=== PATIENT | female | born 1930 | race Caucasian/White ===

== ENCOUNTER 2016-10-28 02:00 | Inpatient (IN) | payer OTHER, MEDICARE ==
[2016-10-28] VITALS (8 sets, daily range): BP systolic 119–132; BP diastolic 49–77; PULSE 115–136; RESP 18–23; TEMP 97.5–98.8; O2SAT 92–97
[~2016-10-28] VITALS: Ht 152.4 cm; Wt 51.3 kg
[~2016-10-28 02:00] MED LIST: ACET-2165 PO; ASCO500T20 PO; CARB200T PO; CRAN450C PO; DIVA500T4 PO; FERR-57 PO; MULT240L3 PO; OSCD500 PO; PRO40 PO; SENN-153 PO; WARF6TAB20 PO
--- NOTE | 2016-10-28 02:00 | NUR ---
Patient to ER bed 6 to gown for evaluation. Side rails up
--- NOTE | 2016-10-28 02:00 | NUR ---
Prior to the pt's arrival, Dr. Hudson came to the ER and informed the staff that he would be sending the pt because he was covering for Dr. Lobato. He instructed that he be contacted should the pt require admission.
--- NOTE | 2016-10-28 02:10 | NUR ---
ER Dr. Shaikh at bedside examining patient.
--- NOTE | 2016-10-28 02:20 | NUR ---
Patient BIB by ambulance with a complaint of SOB. Patient alert but non-verbal, does not follow commands. Afebrile. O2 sat 91%. Rhonchi on bilateral lungs. No acute distress noted. Will continue to monitor.
[2016-10-28] MEDS ORDERED: IPRATROPIUM/ALBUTEROL SULFATE 3 ML AMPUL.NEB ONE ×2 (02:48→03:43)
[2016-10-28] MEDS ORDERED: LEVOFLOXACIN 500 MG/D5W 100 ML IV ONE (03:36)
[2016-10-28] MEDS ORDERED: PIPERACILLIN/TAZOBACTAM 3.375 GM/VIAL (ZOSYN) IV ONE (03:37)
--- NOTE | 2016-10-28 03:58 | NUR ---
Dr. Hudson paged for admission per previous instructions.
--- NOTE | 2016-10-28 04:18 | NUR ---
Patient transferred to Telemetry unit room 133A via rsherrard by 2 RNs without incident. No acute distress or SOB noted. Patient hooked up on tele monitor. O2 sat 95-96%. Heart rated elevated at 129 beats/min. Temperature 97.[address] Hudson is the attending MD and obtained orders. Report given to PRANEETH Miller.
--- NOTE | 2016-10-28 04:20 | NUR ---
Admission Note. DOWN TIME Received patient from ER with diagnosis of UTI, PNA. Initial Plan of Care discussed-patient UNABLE TO VERBALIZE understanding.Oriented to room,133A call light, pain management and safety.
--- NOTE | 2016-10-28 05:00 | NUR ---
Admission Assessment Received patient from ED, non-verbal but opens and tracks with eyes, no acute distress noted. IV to left forearm noted to be infiltrated, IV fluids stopped, new IV to be inserted. All extremities noted to be contracted. G-tube noted to abdomen. All fall and safety precautions in place, will continue to monitor closely for change in patient status.
[2016-10-28] MEDS ORDERED: D5/0.45 NS 1,000 ML IV SCH (05:15)
--- NOTE | 2016-10-28 05:15 | NUR ---
MD Called Dr Hudson was called and made aware that patient's SBP in the ED was 80's per ED RN and HR is sustaining in the 130's, no fever noted at this time. Does not want to initiate sepsis protocol at this time. Down time during ED stay, verified with ED RN, blood cultures and first lactic acid were drawn, 1L IV fluids given. New order received for IVF at D51/2NS at 75mL/hr. Noted and to be carried out.
[2016-10-28] MEDS ORDERED: LevALBUTEROL HCL 1.25 MG/0.5 ML *CONC.* VIAL.NEB (XOPENEX CONC.) INH PRN (06:15)
[2016-10-28 06:50] LABS: WHITE BLOOD COUNT (AUTO) 6.8 K/uL (4.8-10.8)
[2016-10-28 06:51] LABS: BASOPHILS % (AUTO) 0.5 % (0.0-2.0); EOSINOPHILS % (AUTO) 0.5 % (0.0-4.0); HEMATOCRIT 33.4 % (36-48); HEMOGLOBIN 11.4 g/dL (12.0-16.0); LYMPHOCYTES # (AUTO) 1.1 K/uL (1.0-5.5); LYMPHOCYTES % (AUTO) 15.7 % (20.5-51.5); MEAN CORPUSCULAR HEMOGLOBIN 34 pg (27-31); MEAN CORPUSCULAR HGB CONC 34 % (32-36); MEAN CORPUSCULAR VOLUME 99 fL (79.0-98.0); MONOCYTES # (AUTO) 0.8 K/uL (0.0-1.0); MONOCYTES % (AUTO) 11.9 % (1.7-9.3); NEUTROPHILS # (AUTO) 4.9 K/uL (1.8-7.7); NEUTROPHILS % (AUTO) 71.4 % (40.0-70.0); PLATELET COUNT (AUTO) 173 K/uL (130-430); RED BLOOD CELL COUNT(AUTO) 3.38 MIL/uL (4.2-6.2); RED CELL DISTRIBUTION WIDTH 12.9 % (9.0-15.0)
[2016-10-28 06:52] LABS: ANION GAP < 3 (5-15); CHLORIDE 98 mmol/L (98-107); POTASSIUM 3.6 mmol/L (3.5-5.1); SODIUM SERUM 137 mmol/L (136-145)
[2016-10-28 06:53] LABS: ALANINE AMINOTRANSFERASE 20 U/L (12-78); ASPARTATE AMINOTRANSFERASE 29 U/L (10-37); CALCIUM 9.6 mg/dL (8.4-11.0); CREATININE 0.53 mg/dL (0.55-1.30); GLUCOSE 105 mg/dL (70-99); TOTAL BILIRUBIN 0.1 mg/dL (0.0-1.0); TOTAL PROTEIN, SERUM 6.5 g/dL (6.4-8.3); UREA NITROGEN, BLOOD 26 mg/dL (8-21)
[2016-10-28 06:54] LABS: ALBUMIN 2.5 g/dL (3.4-4.8)
[2016-10-28 06:55] LABS: PROTHROMBIN TIME 10.4 SECS (9.5-12.5)
--- NOTE | 2016-10-28 06:55 | NUR ---
Closing Notes Patient is resting quietly in bed, no acute distress noted. IV fluids and tube feeding started per MD order and are infusing well. IV noted to be infiltrated, new IV started to right hand #24 gauge, flushes well, IV fluids restarted and infusing well. Patient is stable, all needs met throughout shift. Will continue to monitor until endorsed to AM nurse at bedside.
[2016-10-28 07:05] LABS: BILIRUBIN,URINE NEGATIVE (NEGATIVE); BLOOD, URINE NEGATIVE (NEGATIVE); CLARITY/URINE SLIGHTLY CLOUDY (CLEAR); COLOR,URINE YELLOW (YELLOW); GLUCOSE,URINE NEGATIVE (NEGATIVE); KETONES,URINE TRACE (NEGATIVE); LEUKOCYTE ESTERASE ,URINE 1+ (NEGATIVE); NITRITE, URINE POSITIVE (NEGATIVE); PROTEIN URINE TRACE (NEGATIVE); UROBILINOGEN,URINE 0.2 (0.2-1.0)
[2016-10-28 07:10] LABS: BACTERIA,URINE MANY /HPF (None Seen); MUCUS,URINE None Seen /LPF (None Seen); RBC,URINE 0-3 /HPF (0-3); WBC,URINE 50-80 /HPF (0-3)
[2016-10-28] MEDS: LevALBUTEROL HCL 1.25 MG/0.5 ML *CONC.* VIAL.NEB (XOPENEX CONC.) INH SCH ×3 (07:33→20:06)
--- NOTE | 2016-10-28 08:10 | NUR ---
Routine Patient resting in bed with no respiratory distress noted. Patient stable.
--- NOTE | 2016-10-28 09:43 | NUR ---
Routine Patient resting comfortably in bed with Dr. Hudson at bedside. Patient stable.
[2016-10-28] MEDS ORDERED: ACETAMINOPHEN 325 MG TABLET GT PRN (10:00)
[2016-10-28] MEDS ORDERED: MILK OF MAGNESIA 30 ML UDC PO PRN ×2 (10:00→11:00)
[2016-10-28] MEDS ORDERED: ASCORBIC ACID 500 MG TABLET PO ONE (11:00)
[2016-10-28] MEDS ORDERED: AZITHROMYCIN 500 MG in NS 250 ML IV ONE (11:00)
[2016-10-28] MEDS: GENTAMICIN 120 MG/ ISO-OSM 100 ML PREMIX IV SCH (12:42)
--- NOTE | 2016-10-28 12:45 | NUR ---
Routine Scheduled IV ABX given per order. Patient resting comfortably in bed with no respiratory distress noted. Patient stable.
--- NOTE | 2016-10-28 13:40 | NUR ---
Routine Ordered IV ABX given. Patient resting in bed receiving breathing treatment. Patient stable at this time.
--- NOTE | 2016-10-28 15:45 | NUR ---
Routine Patient resting in bed with eyes closed. No respiratory distress noted at this time. Patient stable.
--- NOTE | 2016-10-28 16:40 | NUR ---
Routine Patient resting in bed with facial grimace. Tylenol given prn for pain. Tube feeding placed on hold due to high residual (150 mls). Will recheck residual in one hour. Patient stable at this time.
--- NOTE | 2016-10-28 17:45 | NUR ---
Routine Patient resting in bed with no facial grimace. Rechecked residual: 175 ml. Tube feeding still on hold. Will contact doctor.
--- NOTE | 2016-10-28 18:35 | NUR ---
Routine Patient resting comfortably in bed with no distress noted. No facial grimace at this time. Patient stable throughout shift.
--- NOTE | 2016-10-28 19:45 | NUR ---
Initial Notes Pt is awake, non verbal and unable to make needs known. Pt noted to have audible rhonchi over anterior bilateral lung bases. G tube residual checked with Day RN Lakisha, with total of 40cc of residual noted. G tube re started at this time with aspiration precautions in place, head of bed elevated to 45 high fowlers degree at all times. No acute distress or sob noted. Pt is on 2L N/C with O2 saturation at 92%. Pt is sinus tachy on tele monitor, 115. Will page MD to notify of possible fluid overload with audible rhonchi. IV to right hand #24g noted infusing with D51/2NS@75ml/hr. G tube running well with Isosource@50ml/hr. Bilateral upper and lower extremities contracted. Unable to discuss plan of care with pt due to cognitive and physical limitations, no family available to discuss poc with at this time. Safety precautions in place with bed in lowest, locked, position, bed alarm on at all times. Aspiration precautions in place, oral suctioning provided at this time. Padded side rails up hx of epilepsy, no s/s of seizure activity noted at this time. All needs met. Call light in reach. Will continue to monitor.
--- NOTE | 2016-10-28 19:54 | NUR ---
Pageálvaro Hudson Pageálvaro Hudson at this time to notify of pt's ronchi heard over anterior bilateral lobes, elevated heart rate of 115. Will await call back.
--- NOTE | 2016-10-28 20:04 | NUR ---
Spoke with MD Hudson Informed MD that pt's lung sounds auscultated and anterior rhonchi heard all over bases. MD ordered to hep lock IV fluids. Also informed that pt's g tube feeding residuals were elevated to 175ml per Day shift PRANEETH Banuelos, but where checked now and they are at 40cc. All new orders noted and carried out. Will continue to monitor.
--- NOTE | 2016-10-28 20:06 | NUR ---
Breathing TX Respiratory therapist administering breathing treatment as ordered.
[2016-10-28] MEDS: ENOXAPARIN SODIUM 30 MG/0.3 ML SYRINGE SUBCUT SCH (21:43)
[2016-10-28] MEDS: PANTOPRAZOLE SODIUM 40 MG TAB PO SCH (21:44)
[2016-10-28] MEDS: SENNOSIDES 8.6 MG TABLET PO SCH (21:44)
[2016-10-28] MEDS: CALCIUM CARBONATE/VITAMIN D3 1 TAB TABLET PO SCH (21:44)
[2016-10-28] MEDS: DIVALPROEX SODIUM 500 MG TAB.SR.24H (DEPAKOTE ER) PO SCH (21:44)
[2016-10-28] MEDS: FERROUS SULFATE 325 MG TABLET.DR PO SCH (21:44)
--- NOTE | 2016-10-28 21:44 | NUR ---
Scheduled medications/Bed bath G tube checked with 10cc of air bolus, with no residual noted at this time. All scheduled medications given via g tube as ordered and g tube flushed well with free water. G tube running well as ordered with Isosource @50cc/hr. IV hep locked. Total bed bath given at this time with skin care. Pt re positioned with pillows for comfort with heels floating. All needs met at this time. Call light in reach. Will continue to monitor.
[2016-10-29 00:02] VITALS: BP 122/73; PULSE 112; RESP 20; TEMP 98.8; O2SAT 96
--- NOTE | 2016-10-29 00:15 | NUR ---
PATIENT RESTING: Patient resting quietly. No acute distress noted. Vital signs within normal range. Call light in hand. Will continue to monitor.
[2016-10-29] MEDS: LevALBUTEROL HCL 1.25 MG/0.5 ML *CONC.* VIAL.NEB (XOPENEX CONC.) INH SCH ×4 (01:27→20:01)
--- NOTE | 2016-10-29 02:30 | NUR ---
Rounds Pt is sleeping at this time with no acute distress or sob noted. All needs met. Call light in reach. Will continue to monitor.
[2016-10-29 03:26] VITALS: BP 119/54; PULSE 108; RESP 20; TEMP 98.6; O2SAT 86
--- NOTE | 2016-10-29 04:45 | NUR ---
Rounds Pt is awake, hygiene care provided. No acute distress noted or sob. All needs met at this time. Call light in hand. Will continue to monitor.
--- NOTE | 2016-10-29 06:04 | NUR ---
Critical Lab - Result reported to MD Hudson Paged and spoke with MD at this time. Informed MD of critical result for positive gram in clusters for both aerobic and anaerobic bottles. New order for Vanco IVPB 1 gm now, and then pharmacy to dose.
[2016-10-29] MEDS: NORMAL SALINE 5 ML DISP.SYRIN IVF SCH ×3 (06:48→21:00)
[2016-10-29 07:00] LABS: BASOPHILS % (AUTO) 0.4 % (0.0-2.0); LYMPHOCYTES # (AUTO) 1.4 K/uL (1.0-5.5); NEUTROPHILS # (AUTO) 3.5 K/uL (1.8-7.7); WHITE BLOOD COUNT (AUTO) 5.9 K/uL (4.8-10.8)
--- NOTE | 2016-10-29 07:10 | NUR ---
Closing Notes Pt is resting comfortably in bed. No acute distress or sob noted. Aspiration and safety precautions maintained. Pt denies any pain or discomfort at this time. VSS. IV intact. Breathing is even unlabored. All needs met throughout shift. Pt in stable condition. All needs met throughout shift. Will endorse care to am nurse. Call light in hand. Will continue to monitor.
[2016-10-29 07:13] LABS: ANION GAP 3 (5-15); CHLORIDE 100 mmol/L (98-107); CREATININE 0.31 mg/dL (0.55-1.30); GLUCOSE 98 mg/dL (70-99); POTASSIUM 4.3 mmol/L (3.5-5.1); SODIUM SERUM 135 mmol/L (136-145); UREA NITROGEN, BLOOD 19 mg/dL (8-21)
[2016-10-29 07:20] LABS: EOSINOPHILS % (AUTO) 0.3 % (0.0-4.0); HEMATOCRIT 30.2 % (36-48); HEMOGLOBIN 10.4 g/dL (12.0-16.0); LYMPHOCYTES % (AUTO) 23.7 % (20.5-51.5); MEAN CORPUSCULAR HEMOGLOBIN 34 pg (27-31); MEAN CORPUSCULAR HGB CONC 34 % (32-36); MEAN CORPUSCULAR VOLUME 99 fL (79.0-98.0); MONOCYTES % (AUTO) 17.7 % (1.7-9.3); NEUTROPHILS % (AUTO) 57.9 % (40.0-70.0); PLATELET COUNT (AUTO) 146 K/uL (130-430); RED BLOOD CELL COUNT(AUTO) 3.05 MIL/uL (4.2-6.2); RED CELL DISTRIBUTION WIDTH 13.3 % (9.0-15.0)
[2016-10-29 07:50] VITALS: BP 108/76; PULSE 101; RESP 16; TEMP 98.6; O2SAT 93
--- NOTE | 2016-10-29 07:50 | NUR ---
INITIAL ROUNDS Received pt awake, eyes open, withdraws to touch, non-verbal. No s/s resp distress-noted pt with non-productive cough-pt suction via mouth with moderate amount of thin, clear sputum. No s/s pain or discomfort. Noted pt's BUE and BLE contracted. Pt on air mattress-will reposition pt Q2hrs/PRN with pillow support and heels off-loaded for skin care. Pt also has pillow between legs due to contraction to protect pt's skin. G-tube feeding infusing well at ordered rate with 2 ml residual noted. Side rails up x3, bed alarm on and room close to nursing station for safety.
[2016-10-29] MEDS ORDERED: VANCOMYCIN HCL 1 GM/NS PREMIX 250 ML IV ONE (08:00)
[2016-10-29] MEDS: CALCIUM CARBONATE/VITAMIN D3 1 TAB TABLET PO SCH ×2 (08:49→21:00)
[2016-10-29] MEDS: DIVALPROEX SODIUM 500 MG TAB.SR.24H (DEPAKOTE ER) PO SCH ×2 (08:49→21:00)
[2016-10-29] MEDS: PANTOPRAZOLE SODIUM 40 MG TAB PO SCH ×2 (08:50→21:00)
[2016-10-29] MEDS: ASCORBIC ACID 500 MG TABLET PO SCH (08:50)
[2016-10-29] MEDS ORDERED: AZITHROMYCIN 500 MG in NS 250 ML IV SCH (09:00)
[2016-10-29] MEDS: FERROUS SULFATE 325 MG TABLET.DR PO SCH ×2 (09:05→21:00)
--- NOTE | 2016-10-29 10:05 | NUR ---
ROUNDS Pt resting quietly in bed with no s/s resp distress, no s/s pain or discomfort. Pt repositioned with assist of CRUSHER TENDER-pt had small BM, pt cleaned up. Pt repositioned with pillow support and heels off-loaded for skin care. All precautions remain in place.
[2016-10-29 12:00] VITALS: BP 109/60; PULSE 122; RESP 20; TEMP 98.8; O2SAT 95
[2016-10-29] MEDS: GENTAMICIN 120 MG/ ISO-OSM 100 ML PREMIX IV SCH (12:00)
--- NOTE | 2016-10-29 12:00 | NUR ---
ROUNDS/IVPB Pt resting quietly in bed with no s/s resp distress, no s/s pain or discomfort. Gentamicin IVPB hung as ordered. Pt repositioned with pillow support and heels off-loaded with pillow between pt's legs.
--- NOTE | 2016-10-29 14:05 | NUR ---
ROUNDS Pt lying in bed with eyes open, noted pt with non-productive cough-pt suctioned via mouth moderate amount of thin, clear sputum. No s/s pain or discomfort. Pt repositioned with pillow support. All precautions remain in place.
[2016-10-29 16:00] VITALS: BP 147/70; PULSE 105; RESP 21; TEMP 98.6; O2SAT 99
--- NOTE | 2016-10-29 16:15 | NUR ---
ROUNDS/BM Pt resting quietly in bed with no s/s resp distress, no s/s pain or discomfort. Pt had large dark BM-noted pt on iron tablets. Pt repositioned.
[2016-10-29] MEDS: MULTIVITS W-MIN/FERROUS GLUC 15 ML UDC PO SCH (16:19)
--- NOTE | 2016-10-29 18:26 | NUR ---
CLOSING NOTE Pt resting quietly in bed with no s/s resp distress, no s/s pain or discomfort. Isosource infusing well via G-tube at ordered rate. Pt repositioned with pillow support and heels off-loaded with pillow between legs. Aspiration, skin and safety precautions remain in place.
--- NOTE | 2016-10-29 19:40 | NUR ---
Initial Note Late entry due to patient care. Patient in bed at this time resting with eyes closed. Patient noted with congestion and cough, patient has oral secretions but refuses oral suctioning by closing mouth tight. Vital signs stable. No residual noted from gtube feeding, patient tolerating gtube feeding well. IV site patent with no signs or symptoms of infiltration noted at this time. Call light in hand. Fall and safety precautions in place. Will continue to monitor.
[2016-10-29 20:00] VITALS: BP 153/96; PULSE 119; RESP 18; TEMP 98.5; O2SAT 95
[2016-10-29] MEDS: ENOXAPARIN SODIUM 30 MG/0.3 ML SYRINGE SUBCUT SCH (20:59)
[2016-10-29] MEDS: SENNOSIDES 8.6 MG TABLET PO SCH (21:00)
--- NOTE | 2016-10-29 22:29 | NUR ---
RN ROUNDS Patient in bed at this time resting, respirations even and unlabored. Patient noted with an occasional cough. No acute distress noted at this time. Call light in hand. Fall and safety precautions in place. Will continue to monitor.
[2016-10-30 00:36] VITALS: BP 135/67; PULSE 100; RESP 20; TEMP 99.4; O2SAT 98
--- NOTE | 2016-10-30 01:44 | NUR ---
RN ROUNDS Patient in bed at this time resting, respirations even and unlabored. No acute distress noted at this time. Patient in no apparent pain or discomfort. Provided oral suctioning, patient resisted by closing mouth tightly. Call light in hand. Fall and safety precautions in place. Will continue to monitor.
--- NOTE | 2016-10-30 02:26 | NUR ---
RN ROUNDS Patient in bes at this time resting, respirations even and unlabored. No acute distress noted at this time. Patient in no apparent pain, no facial grimacing noted at this time. Call light in hand. Fall and safety precautions in place. Will continue to monitor.
[2016-10-30] MEDS: LevALBUTEROL HCL 1.25 MG/0.5 ML *CONC.* VIAL.NEB (XOPENEX CONC.) INH SCH ×3 (02:30→17:19)
[2016-10-30 04:36] VITALS: BP 145/84; PULSE 106; RESP 20; TEMP 97.8; O2SAT 95
--- NOTE | 2016-10-30 04:44 | NUR ---
RN ROUNDS Patient in bed at this time resting, respirations even and unlabored. No acute distress noted at this time. Patient appears to be in no apparent pain or discomfort at this time. No facial grimacing noted. Call light in hand. Fall and safety precautions in place. Will continue to monitor.
[2016-10-30] MEDS: NORMAL SALINE 5 ML DISP.SYRIN IVF SCH ×3 (05:22→21:56)
--- NOTE | 2016-10-30 06:42 | NUR ---
Closing note Patient in bed at this time resting, respirations even and unlabored. No acute distress noted at this time. All due meds given, all needs met at this time. Call light in hand. Fall and safety precautions in place. Will endorse to day shift nurse.
[2016-10-30 07:51] VITALS: BP 125/53; PULSE 47; RESP 22; TEMP 98; O2SAT 94
[2016-10-30] MEDS ORDERED: VANCOMYCIN HCL 750 MG in NS 250 ML IV SCH ×2 (08:00→10:00)
[2016-10-30] MEDS: MULTIVITS W-MIN/FERROUS GLUC 15 ML UDC PO SCH (08:56)
[2016-10-30] MEDS: CALCIUM CARBONATE/VITAMIN D3 1 TAB TABLET PO SCH ×2 (08:57→21:55)
[2016-10-30] MEDS: PANTOPRAZOLE SODIUM 40 MG TAB PO SCH ×2 (08:57→21:55)
[2016-10-30] MEDS: ASCORBIC ACID 500 MG TABLET PO SCH (08:57)
[2016-10-30] MEDS: DIVALPROEX SODIUM 500 MG TAB.SR.24H (DEPAKOTE ER) PO SCH ×2 (08:57→21:56)
[2016-10-30] MEDS: FERROUS SULFATE 325 MG TABLET.DR PO SCH ×2 (08:57→21:55)
--- NOTE | 2016-10-30 09:00 | NUR ---
SUCTION: FREQUENT SUCTION NEEDED. HOB ELEVATED TO PREVENT ASPIRATION.
--- NOTE | 2016-10-30 10:00 | NUR ---
ORAL SUCTION, TURN AND REPOSITION . HOB ELEVATED TO PREVENT ASPIRATION.
--- NOTE | 2016-10-30 10:30 | NUR ---
Nutrition Update Tim Scale 14 noted. Pt admitted for UTI, pneumonia. Diet: Isosource 1.5 at 50 ml/hr, Free Water Flush: 50 via GT BMI: 22.1 kg/m2 RD to follow per nutrition care standards.
[2016-10-30] MEDS: AZITHROMYCIN 500 MG in NS 250 ML IV SCH (11:19)
[2016-10-30] MEDS: GENTAMICIN 120 MG/ ISO-OSM 100 ML PREMIX IV SCH (13:34)
[2016-10-30 13:45] VITALS: BP 138/86; PULSE 120; RESP 19; TEMP 98.9; O2SAT 98
--- NOTE | 2016-10-30 14:00 | NUR ---
MD ROUNDS: SEEN BY DR. RODRÍGUEZ WITH NEW ORDER RECEIVED.
[2016-10-30 14:27] VITALS: Ht 152.4 cm; Wt 51.3 kg
--- NOTE | 2016-10-30 15:21 | NUR ---
DISCHARGE PLANNING DC Planning order for LTAC evaluation. Faxed DC Planning order to [facility] [phone]. Notified Willy Solano Will follow up. Addendum: 10/30/16 at 1605 by Leonila Parks DP Called patient daughter Leticia Cabrera phone rings with no voice mailbox available to leave message. Called Leticia mccoy left voice message requesting return call back. Called patient sister Katelyn Bustillo who is agreeable with placement at [facility] and requested [place] location as it is [place] to [place]. CM made aware and will follow up in AM.
[2016-10-30 15:40] VITALS: BP 139/72; PULSE 109; RESP 16; TEMP 98.1; O2SAT 96
--- NOTE | 2016-10-30 18:11 | NUR ---
NOTES: ALL NEEDS METS. NO S/S OF DISTRESS, VITAL SIGN STABLES, AFEBRILE. G-TUBE FEEDING INFUSING WELL,HOB ELEVATED TO PREVENT ASPIRATION. IV ACCESS AT RIGHT HAND #24 SALINE .WILL ENDORSED TO INCOMING NURSE.
[2016-10-30 20:21] VITALS: BP 135/79; PULSE 104; RESP 18; TEMP 97.5; O2SAT 96
[2016-10-30] MEDS: ENOXAPARIN SODIUM 30 MG/0.3 ML SYRINGE SUBCUT SCH (21:56)
[2016-10-30] MEDS: SENNOSIDES 8.6 MG TABLET PO SCH (21:56)
--- NOTE | 2016-10-30 22:15 | NUR ---
SEIZURE precautions in place , side rails padded , bed to low position safety measures implemented skin dry warm / .
[2016-10-31] VITALS (7 sets, daily range): BP systolic 126–157; BP diastolic 64–98; PULSE 60–111; RESP 18–21; TEMP 97.4–98.6; O2SAT 94–98
--- NOTE | 2016-10-31 00:33 | NUR ---
Hourly Rounding HOB elevated patient awake non verbal , GTF @ 50 ml hour , assist for position change respirations regular also unlabored / .
--- NOTE | 2016-10-31 00:38 | NUR ---
Reposition & Turning off loading with pillows , kept clean and dry as needed chest movement symmetrical unlabored / .
--- NOTE | 2016-10-31 01:38 | NUR ---
LOVENOX 30 MG sub q. administer no s/sx of active bleeding Position change tolerated / .
[2016-10-31] MEDS: LevALBUTEROL HCL 1.25 MG/0.5 ML *CONC.* VIAL.NEB (XOPENEX CONC.) INH SCH ×5 (03:38→20:34)
--- NOTE | 2016-10-31 03:48 | NUR ---
Isosource GTF @ 50 ml hour HOB elevated tube placement verified , via auscultation residual 10 ml , kept patient up right position / .
--- NOTE | 2016-10-31 06:05 | NUR ---
bed bath given reposition & Turning contractures are noted to both arms & legs procedure tolerated / .
--- NOTE | 2016-10-31 07:30 | NUR ---
AM ROUNDS: No s/s of distress noted. Will continue to monitor.
[2016-10-31] MEDS ORDERED: VANCOMYCIN HCL 750 MG in NS 250 ML IV SCH (08:00)
[2016-10-31] MEDS: MULTIVITS W-MIN/FERROUS GLUC 15 ML UDC PO SCH (08:52)
[2016-10-31] MEDS: CALCIUM CARBONATE/VITAMIN D3 1 TAB TABLET PO SCH (08:52)
[2016-10-31] MEDS: FERROUS SULFATE 325 MG TABLET.DR PO SCH (08:52)
[2016-10-31] MEDS: DIVALPROEX SODIUM 500 MG TAB.SR.24H (DEPAKOTE ER) PO SCH (08:52)
[2016-10-31] MEDS: PANTOPRAZOLE SODIUM 40 MG TAB PO SCH (08:53)
[2016-10-31] MEDS: ASCORBIC ACID 500 MG TABLET PO SCH (08:53)
--- NOTE | 2016-10-31 10:12 | NUR ---
PATIENT RESTING: Patient resting quietly. No acute distress noted. Vital signs within normal range.
--- NOTE | 2016-10-31 10:12 | NUR ---
AM ROUNDS: No s/s of distress noted. Will continue to monitor.
[2016-10-31] MEDS: AZITHROMYCIN 500 MG in NS 250 ML IV SCH (10:54)
--- NOTE | 2016-10-31 12:37 | NUR ---
PATIENT RESTING: Patient resting quietly. No acute distress noted. Vital signs within normal range.
--- NOTE | 2016-10-31 14:00 | NUR ---
PATIENT RESTING: Patient resting quietly. No acute distress noted. Vital signs within normal range.
--- NOTE | 2016-10-31 14:48 | NUR ---
DC PLANNING: RECEIVED A DC ORDER FROM THE MD TO TRANSFER THE PATIENT TO [facility]. ACCEPTED TO ROOM# 207 B, BED AVAILABLE AFTER 7 PM. CALLED [facility]# [phone], SHE AGREED TO THE DISCHARGE. ARRANGED BLS TRANSPORT VIA [facility] AT 1930. PACKET AT THE NURSE'S STATION AND ARLENE DACOSTA NOTIFIED.
[2016-10-31] MEDS: NORMAL SALINE 5 ML DISP.SYRIN IVF SCH (15:45)
[2016-10-31] MEDS: GENTAMICIN 120 MG/ ISO-OSM 100 ML PREMIX IV SCH (15:45)
--- NOTE | 2016-10-31 16:00 | NUR ---
PATIENT RESTING: Patient resting quietly. No acute distress noted. Vital signs within normal range.
--- NOTE | 2016-10-31 16:06 | NUR ---
REPORT: Given to Yany at [facility].
--- NOTE | 2016-10-31 17:09 | NUR ---
PT TRANSFERRED Report given to Jacquelin at [facility]. Transfer packet with Transfer Orders and Medication Reconciliation form given to EMT with report. [facility]care provided. [facility] ID [facility] removed, replaced with ID band with pt's name and . All belongings sent with patient. Patient left floor via gurney escorted by EMT in no distress. Addendum: 10/31/16 at 1807 by Waldo Olsen RN Disregard. Note meant for another patient.
--- NOTE | 2016-10-31 18:07 | NUR ---
CLOSING NOTE: All needs met. Patient to be transferred to [facility]. Pickup by [facility] at 1930. Will endorse to [facility] shift nurse.
--- NOTE | 2016-10-31 20:08 | NUR ---
Patient d/c to Wil[facility] Poe all belongings sent with patient , IV intact to right hand & patent , orders carried out / .
[2016-10-31] MEDS ORDERED: FERROUS SULFATE 325 MG TABLET.DR PO SCH (21:00)
== END 2016-10-31 20:03 | DRG 871 ==
LOC: SED 02:00 → STU 03:55
PROVIDERS: ADMIT Family Medicine; ATTEND Family Medicine
DX: A41.9 Sepsis, unspecified organism (principal); J69.0 Pneumonitis due to inhalation of food and vomit; E43 Unspecified severe protein-calorie malnutrition; N39.0 Urinary tract infection, site not specified; J44.1 Chronic obstructive pulmonary disease with (acute) exacerbation; J44.0 Chronic obstructive pulmonary disease with (acute) lower respiratory infection; E86.0 Dehydration; F03.90 Unspecified dementia, unspecified severity, without behavioral disturbance, psychotic disturbance, mood disturbance, and anxiety; G40.909 Epilepsy, unspecified, not intractable, without status epilepticus; K21.9 Gastro-esophageal reflux disease without esophagitis; D64.9 Anemia, unspecified; J20.9 Acute bronchitis, unspecified; I25.10 Atherosclerotic heart disease of native coronary artery without angina pectoris; I10 Essential (primary) hypertension; Z93.1 Gastrostomy status; Z88.0 Allergy status to penicillin; Z79.899 Other long term (current) drug therapy; Z86.73 Personal history of transient ischemic attack (TIA), and cerebral infarction without residual deficits; Z86.718 Personal history of other venous thrombosis and embolism; Z68.22 Body mass index [BMI] 22.0-22.9, adult
CPT/HCPCS: 36415; 71010; 74000-TC; 80048; 80053; 81000-TC; 83605; 83880; 84484; 85025; 85610-TC; 85730-TC; 87040-TC; 87081; 87086; 87186-TC; 93005; 94640; 94760; 99285; J0456; J1580; J1650; J1956; J2543; J3370; J7050

== ENCOUNTER 2017-04-04 23:23 | Inpatient (IN) | payer OTHER, MEDICARE ==
[~2017-04-04] VITALS: Ht 152.4 cm; Wt 55.8 kg
[~2017-04-04 23:23] MED LIST changes: +ACET-2165 GT; -ACET-2165 PO; +ASCO500T20 GT; -ASCO500T20 PO; -CRAN450C PO; +FERR-57 GT; -FERR-57 PO; +MULT240L3 GT; -MULT240L3 PO; +OSCD500 GT; -OSCD500 PO; +PRO40 GT; -PRO40 PO; -WARF6TAB20 PO
[2017-04-04 23:30] VITALS: BP_SYST 135
[2017-04-05] VITALS (9 sets, daily range): BP systolic 113–148
[2017-04-05 00:10] LABS: BASOPHILS # (AUTO) 0.1 K/uL (0.0-0.2); BASOPHILS % (AUTO) 0.5 % (0.0-2.0); HEMATOCRIT 38.2 % (36-48); HEMOGLOBIN 12.7 g/dL (12.0-16.0); LYMPHOCYTES # (AUTO) 0.7 K/uL (1.0-5.5); LYMPHOCYTES % (AUTO) 5.7 % (20.5-51.5); MEAN CORPUSCULAR HEMOGLOBIN 33 pg (27-31); MEAN CORPUSCULAR HGB CONC 33 % (32-36); MEAN CORPUSCULAR VOLUME 99 fL (79.0-98.0); MONOCYTES # (AUTO) 0.3 K/uL (0.0-1.0); MONOCYTES % (AUTO) 2.5 % (1.7-9.3); NEUTROPHILS # (AUTO) 11.7 K/uL (1.8-7.7); NEUTROPHILS % (AUTO) 91.3 % (40.0-70.0); PLATELET COUNT (AUTO) 225 K/uL (130-430); RED BLOOD CELL COUNT(AUTO) 3.87 MIL/uL (4.2-6.2); RED CELL DISTRIBUTION WIDTH 13.3 % (9.0-15.0); WHITE BLOOD COUNT (AUTO) 12.8 K/uL (4.8-10.8)
[2017-04-05 00:19] LABS: CHLORIDE 109 mmol/L (98-107); CREATININE 0.72 mg/dL (0.55-1.30); GLUCOSE 196 mg/dL (70-99); POTASSIUM 3.8 mmol/L (3.5-5.1); SODIUM SERUM 142 mmol/L (136-145); UREA NITROGEN, BLOOD 33 mg/dL (8-21)
[2017-04-05 00:20] LABS: ANION GAP < 3 (5-15)
[2017-04-05] MEDS ORDERED: WARF5TAB2 GT (00:25)
[2017-04-05] MEDS ORDERED: NA P118E RC (00:25)
[2017-04-05] MEDS ORDERED: DEPL250/5 GT (00:25)
[2017-04-05] MEDS ORDERED: DULR10 RC (00:25)
[2017-04-05] MEDS ORDERED: ACET325T53 GT (00:25)
[2017-04-05] MEDS ORDERED: MAGN400O4 GT (00:25)
[2017-04-05] MEDS ORDERED: DOCU-144 GT (00:25)
[2017-04-05] MEDS ORDERED: PANTOPRAZOLE SODIUM 40 MG/VIAL (PROTONIX) IVP ONE (00:30)
[2017-04-05 00:35] LABS: ALANINE AMINOTRANSFERASE 20 U/L (12-78); ALBUMIN 2.8 g/dL (3.4-4.8); ASPARTATE AMINOTRANSFERASE 22 U/L (10-37); TOTAL BILIRUBIN 0.3 mg/dL (0.0-1.0)
[2017-04-05] MEDS ORDERED: NACL 0.9% 1,000 ML IV SCH (01:19)
[2017-04-05] MEDS ORDERED: DILTIAZEM HCL 25 MG/5 ML VIAL IVP ONE (01:30)
[2017-04-05] MEDS ORDERED: NACL 0.9% 1,000 ML IV ONE ×2 (01:30)
[2017-04-05] MEDS ORDERED: ACETAMINOPHEN 325 MG TABLET PO PRN (01:30)
[2017-04-05] MEDS ORDERED: LEVALBUTEROL HCL 0.63 MG/3 ML VIAL.NEB INH PRN (01:30)
[2017-04-05] MEDS ORDERED: ONDANSETRON HCL 4 MG/2 ML VIAL IVP PRN (01:30)
[2017-04-05] MEDS ORDERED: FUROSEMIDE 40 MG/4 ML VIAL IVP ONE (01:45)
[2017-04-05] MEDS ORDERED: ZOLPIDEM TARTRATE 5 MG TABLET PO PRN (01:45)
[2017-04-05] MEDS ORDERED: SIMETHICONE 80 MG TAB.CHEW PO PRN (01:45)
[2017-04-05] MEDS ORDERED: POTASSIUM CHLORIDE 20 MEQ TAB.PRT.SR PO PRN (01:45)
[2017-04-05] MEDS ORDERED: BISACODYL 10 MG/SUPPOSITORY RC PRN (01:45)
[2017-04-05] MEDS ORDERED: BUDESONIDE 0.5 MG/2 ML AMPUL.NEB INH ONE (02:15)
[2017-04-05] MEDS ORDERED: DILTIAZEM HCL 30 MG TABLET PO ONE (02:15)
[2017-04-05] MEDS: LEVALBUTEROL HCL 0.63 MG/3 ML VIAL.NEB INH SCH ×6 (03:37→23:31)
[2017-04-05 07:43] LABS: BASOPHILS % (AUTO) 0.2 % (0.0-2.0); HEMATOCRIT 31.8 % (36-48); HEMOGLOBIN 10.8 g/dL (12.0-16.0); LYMPHOCYTES # (AUTO) 1.2 K/uL (1.0-5.5); MEAN CORPUSCULAR HEMOGLOBIN 34 pg (27-31); MEAN CORPUSCULAR HGB CONC 34 % (32-36); MEAN CORPUSCULAR VOLUME 99 fL (79.0-98.0); MONOCYTES # (AUTO) 0.9 K/uL (0.0-1.0); MONOCYTES % (AUTO) 6.3 % (1.7-9.3); NEUTROPHILS # (AUTO) 12.4 K/uL (1.8-7.7); NEUTROPHILS % (AUTO) 85.5 % (40.0-70.0); PLATELET COUNT (AUTO) 180 K/uL (130-430); RED BLOOD CELL COUNT(AUTO) 3.22 MIL/uL (4.2-6.2); RED CELL DISTRIBUTION WIDTH 13.3 % (9.0-15.0); WHITE BLOOD COUNT (AUTO) 14.5 K/uL (4.8-10.8)
[2017-04-05 07:45] LABS: INR 1.4 (0.8-1.2); PROTHROMBIN TIME 15.6 SECS (9.5-12.5)
[2017-04-05] MEDS: BUDESONIDE 0.5 MG/2 ML AMPUL.NEB INH SCH ×2 (08:05→20:07)
[2017-04-05 08:20] LABS: AMYLASE 75 U/L (0-100); ANION GAP 5 (5-15); CALCIUM 9.2 mg/dL (8.4-11.0); CHLORIDE 111 mmol/L (98-107); GLUCOSE 107 mg/dL (70-99); LIPASE 118 U/L (73-393); PHOSPHORUS 2.8 mg/dL (2.7-4.5); POTASSIUM 4.2 mmol/L (3.5-5.1); SODIUM SERUM 147 mmol/L (136-145); THYROID STIMULATING HORMONE 3.96 uIu/mL (0.34-4.82); UREA NITROGEN, BLOOD 32 mg/dL (8-21)
[2017-04-05] MEDS: PANTOPRAZOLE SODIUM 40 MG/VIAL (PROTONIX) IVP SCH (08:51)
[2017-04-05] MEDS ORDERED: HEPARIN SODIUM,PORCINE 5000 UNITS/ML VIAL IVP SCH (09:00)
[2017-04-05] MEDS ORDERED: COMMUNICATION ORDER XX ONE ×2 (09:00→10:45)
[2017-04-05] MEDS ORDERED: DOCUSATE SODIUM 100 MG CAPSULE PO SCH (09:00)
[2017-04-05] MEDS ORDERED: NS 500 ML IV ONE (10:00)
[2017-04-05] MEDS ORDERED: HEPARIN SODIUM,PORCINE 5000 UNITS/ML VIAL SUBCUT ONE (10:30)
[2017-04-05] MEDS: 0.45% NACL 1,000 ML IV SCH (12:29)
[2017-04-05] MEDS ORDERED: ZOLPIDEM TARTRATE 5 MG TABLET GT PRN (13:29)
[2017-04-05] MEDS ORDERED: SIMETHICONE 80 MG TAB.CHEW GT PRN (13:30)
[2017-04-05] MEDS ORDERED: POTASSIUM CHLORIDE 20 MEQ/PKT PACKET GT PRN (13:45)
[2017-04-05] MEDS: DILTIAZEM HCL 30 MG TABLET GT SCH ×2 (14:20→21:33)
[2017-04-05] MEDS ORDERED: MILK OF MAGNESIA 30 ML UDC GT PRN (17:15)
[2017-04-05] MEDS ORDERED: NA PHOS,M-B/NA PHOS,DI-BA 118 ML (FLEET ENEMA) RC PRN (17:15)
[2017-04-05] MEDS: WARFARIN SODIUM 5 MG TABLET GT SCH (17:46)
[2017-04-05] MEDS ORDERED: PANTOPRAZOLE GRANULES PACKET 40 MG GT SCH (21:00)
[2017-04-05] MEDS: VALPROIC ACID ORAL SYRUP 250 MG/5 ML UDC GT SCH (21:00)
[2017-04-05] MEDS: DOCUSATE SODIUM 100 MG/10 ML UDC GT SCH (21:16)
[2017-04-05] MEDS: CALCIUM CARBONATE/VITAMIN D3 1 TAB TABLET GT SCH (21:28)
[2017-04-05] MEDS: ASCORBIC ACID 500 MG TABLET GT SCH (21:28)
[2017-04-05] MEDS: HEPARIN SODIUM,PORCINE 5000 UNITS/ML VIAL SUBCUT SCH (21:34)
[2017-04-05] MEDS: ACETAMINOPHEN 650 MG/20.3 ML UDC GT PRN (21:36)
[2017-04-06] VITALS (8 sets, daily range): BP systolic 95–137
[2017-04-06] MEDS: LEVALBUTEROL HCL 0.63 MG/3 ML VIAL.NEB INH SCH ×6 (03:00→23:57)
[2017-04-06] MEDS: DILTIAZEM HCL 30 MG TABLET GT SCH ×3 (05:28→21:52)
[2017-04-06] MEDS: 0.45% NACL 1,000 ML IV SCH ×2 (05:28→16:43)
[2017-04-06 07:09] LABS: HEMOGLOBIN A1C 4.8 % (4.8-5.6)
[2017-04-06 07:18] LABS: HEMATOCRIT 28.5 % (36-48); HEMOGLOBIN 9.3 g/dL (12.0-16.0); MEAN CORPUSCULAR HEMOGLOBIN 32 pg (27-31); MEAN CORPUSCULAR HGB CONC 33 % (32-36); MEAN CORPUSCULAR VOLUME 99 fL (79.0-98.0); PLATELET COUNT (AUTO) 147 K/uL (130-430); RED BLOOD CELL COUNT(AUTO) 2.89 MIL/uL (4.2-6.2); RED CELL DISTRIBUTION WIDTH 13.2 % (9.0-15.0)
[2017-04-06 07:22] LABS: WHITE BLOOD COUNT (AUTO) 6.6 K/uL (4.8-10.8)
[2017-04-06 07:31] LABS: BASOPHILS % (AUTO) 0.5 % (0.0-2.0); EOSINOPHILS % (AUTO) 0.4 % (0.0-4.0); LYMPHOCYTES # (AUTO) 0.8 K/uL (1.0-5.5); LYMPHOCYTES % (AUTO) 12.6 % (20.5-51.5); MONOCYTES # (AUTO) 0.3 K/uL (0.0-1.0); NEUTROPHILS # (AUTO) 5.5 K/uL (1.8-7.7); NEUTROPHILS % (AUTO) 82.5 % (40.0-70.0)
[2017-04-06 07:34] LABS: PROTHROMBIN TIME 22.3 SECS (9.5-12.5)
[2017-04-06 07:44] LABS: ALANINE AMINOTRANSFERASE 21 U/L (12-78); ALBUMIN 2.3 g/dL (3.4-4.8); ANION GAP 6 (5-15); ASPARTATE AMINOTRANSFERASE 39 U/L (10-37); CALCIUM 8.7 mg/dL (8.4-11.0); CHLORIDE 107 mmol/L (98-107); CHOLESTEROL 113 mg/dL (<200); CREATININE 0.43 mg/dL (0.55-1.30); GLUCOSE 98 mg/dL (70-99); HDL CHOLESTEROL 45 mg/dL (>55); LDL CHOLESTEROL 49 mg/dL (<100); POTASSIUM 4.1 mmol/L (3.5-5.1); SODIUM SERUM 140 mmol/L (136-145); TOTAL BILIRUBIN 0.3 mg/dL (0.0-1.0); TRIGLYCERIDES 85 mg/dL (30-150); UREA NITROGEN, BLOOD 22 mg/dL (8-21)
[2017-04-06] MEDS: BUDESONIDE 0.5 MG/2 ML AMPUL.NEB INH SCH ×2 (07:49→20:08)
[2017-04-06] MEDS: PANTOPRAZOLE SODIUM 40 MG/VIAL (PROTONIX) IVP SCH (09:37)
[2017-04-06] MEDS: MORPHINE 2 MG/ML INJ. SYRINGE IVP PRN ×3 (09:55→22:19)
[2017-04-06] MEDS: FERROUS SULFATE 300 MG/5 ML UDC GT SCH (10:13)
[2017-04-06] MEDS: DOCUSATE SODIUM 100 MG/10 ML UDC GT SCH ×2 (10:13→21:53)
[2017-04-06] MEDS: ASCORBIC ACID 500 MG TABLET GT SCH ×2 (10:13→21:52)
[2017-04-06] MEDS: CALCIUM CARBONATE/VITAMIN D3 1 TAB TABLET GT SCH ×2 (10:13→21:52)
[2017-04-06] MEDS: HEPARIN SODIUM,PORCINE 5000 UNITS/ML VIAL SUBCUT SCH ×2 (10:15→21:54)
[2017-04-06] MEDS: VALPROIC ACID ORAL SYRUP 250 MG/5 ML UDC GT SCH ×2 (10:19→21:53)
[2017-04-06] MEDS: ACETAMINOPHEN 650 MG/20.3 ML UDC GT PRN (16:18)
[2017-04-06] MEDS: WARFARIN SODIUM 5 MG TABLET GT SCH (18:42)
[2017-04-07] MEDS: LEVALBUTEROL HCL 0.63 MG/3 ML VIAL.NEB INH SCH ×6 (03:28→23:36)
[2017-04-07 03:50] VITALS: BP_SYST 131
[2017-04-07] MEDS ORDERED: FUROSEMIDE 40 MG/4 ML VIAL IVP ONE (04:00)
[2017-04-07] MEDS: MORPHINE 2 MG/ML INJ. SYRINGE IVP PRN ×2 (04:13→08:58)
[2017-04-07] MEDS: DILTIAZEM HCL 30 MG TABLET GT SCH ×3 (05:22→21:15)
[2017-04-07 07:36] LABS: BASOPHILS % (AUTO) 0.2 % (0.0-2.0); HEMOGLOBIN 10.6 g/dL (12.0-16.0); LYMPHOCYTES # (AUTO) 0.7 K/uL (1.0-5.5); LYMPHOCYTES % (AUTO) 7.9 % (20.5-51.5); MEAN CORPUSCULAR HEMOGLOBIN 32 pg (27-31); MEAN CORPUSCULAR HGB CONC 33 % (32-36); MEAN CORPUSCULAR VOLUME 98 fL (79.0-98.0); MONOCYTES # (AUTO) 0.6 K/uL (0.0-1.0); NEUTROPHILS % (AUTO) 84.9 % (40.0-70.0); PLATELET COUNT (AUTO) 183 K/uL (130-430); RED BLOOD CELL COUNT(AUTO) 3.28 MIL/uL (4.2-6.2); RED CELL DISTRIBUTION WIDTH 13.1 % (9.0-15.0); WHITE BLOOD COUNT (AUTO) 8.3 K/uL (4.8-10.8)
[2017-04-07] MEDS: BUDESONIDE 0.5 MG/2 ML AMPUL.NEB INH SCH ×2 (07:38→20:09)
[2017-04-07 07:59] LABS: ANION GAP 7 (5-15); CALCIUM 9.6 mg/dL (8.4-11.0); CHLORIDE 102 mmol/L (98-107); CREATININE 0.69 mg/dL (0.55-1.30); GLUCOSE 107 mg/dL (70-99); INR 3.2 (0.8-1.2); POTASSIUM 3.7 mmol/L (3.5-5.1); SODIUM SERUM 138 mmol/L (136-145); UREA NITROGEN, BLOOD 20 mg/dL (8-21)
[2017-04-07 08:00] VITALS: BP_SYST 118
[2017-04-07 08:02] LABS: PROTHROMBIN TIME 35.6 SECS (9.5-12.5)
[2017-04-07] MEDS: CALCIUM CARBONATE/VITAMIN D3 1 TAB TABLET GT SCH ×2 (08:32→21:15)
[2017-04-07] MEDS: DOCUSATE SODIUM 100 MG/10 ML UDC GT SCH ×2 (08:32→21:14)
[2017-04-07] MEDS: FERROUS SULFATE 300 MG/5 ML UDC GT SCH (08:32)
[2017-04-07] MEDS: PANTOPRAZOLE SODIUM 40 MG/VIAL (PROTONIX) IVP SCH (08:32)
[2017-04-07] MEDS: ASCORBIC ACID 500 MG TABLET GT SCH ×2 (08:32→21:15)
[2017-04-07] MEDS: VALPROIC ACID ORAL SYRUP 250 MG/5 ML UDC GT SCH ×2 (08:32→21:14)
[2017-04-07] MEDS ORDERED: MUPIROCIN 2% TOPICAL OINTMENT 22 GM TP SCH (09:00)
[2017-04-07] MEDS: HEPARIN SODIUM,PORCINE 5000 UNITS/ML VIAL SUBCUT SCH (09:00)
[2017-04-07] MEDS ORDERED: LORazepam 2 MG/ML VIAL IVP PRN ×2 (09:15→10:30)
[2017-04-07] MEDS: 0.45% NACL 1,000 ML IV SCH ×2 (11:15→19:42)
[2017-04-07 12:38] VITALS: BP_SYST 126
[2017-04-07 16:28] VITALS: BP_SYST 128
[2017-04-07] MEDS ORDERED: WARFARIN SODIUM 2.5 MG TABLET PO SCH (18:00)
[2017-04-07 20:00] VITALS: BP_SYST 136
[2017-04-07] MEDS: MUPIROCIN 2% TOPICAL OINTMENT 22 GM TP SCH (21:15)
[2017-04-08] VITALS (9 sets, daily range): BP systolic 93–147
[2017-04-08] MEDS: LEVALBUTEROL HCL 0.63 MG/3 ML VIAL.NEB INH SCH ×5 (03:23→20:02)
[2017-04-08] MEDS: DILTIAZEM HCL 30 MG TABLET GT SCH ×4 (05:52→21:31)
[2017-04-08 07:20] LABS: BASOPHILS % (AUTO) 0.7 % (0.0-2.0); EOSINOPHILS % (AUTO) 0.1 % (0.0-4.0); HEMATOCRIT 29.1 % (36-48); HEMOGLOBIN 9.5 g/dL (12.0-16.0); LYMPHOCYTES # (AUTO) 0.8 K/uL (1.0-5.5); LYMPHOCYTES % (AUTO) 11.4 % (20.5-51.5); MEAN CORPUSCULAR HEMOGLOBIN 32 pg (27-31); MEAN CORPUSCULAR HGB CONC 33 % (32-36); MEAN CORPUSCULAR VOLUME 99 fL (79.0-98.0); MONOCYTES # (AUTO) 0.7 K/uL (0.0-1.0); MONOCYTES % (AUTO) 10.1 % (1.7-9.3); NEUTROPHILS # (AUTO) 5.1 K/uL (1.8-7.7); NEUTROPHILS % (AUTO) 77.7 % (40.0-70.0); PLATELET COUNT (AUTO) 158 K/uL (130-430); RED BLOOD CELL COUNT(AUTO) 2.95 MIL/uL (4.2-6.2); RED CELL DISTRIBUTION WIDTH 13.6 % (9.0-15.0); WHITE BLOOD COUNT (AUTO) 6.6 K/uL (4.8-10.8)
[2017-04-08 07:36] LABS: ANION GAP 7 (5-15); CALCIUM 9.4 mg/dL (8.4-11.0); CHLORIDE 100 mmol/L (98-107); CREATININE 0.53 mg/dL (0.55-1.30); GLUCOSE 98 mg/dL (70-99); POTASSIUM 3.9 mmol/L (3.5-5.1); SODIUM SERUM 137 mmol/L (136-145); UREA NITROGEN, BLOOD 17 mg/dL (8-21)
[2017-04-08] MEDS: BUDESONIDE 0.5 MG/2 ML AMPUL.NEB INH SCH ×2 (07:39→20:01)
[2017-04-08 08:09] LABS: PROTHROMBIN TIME 61.8 SECS (9.5-12.5)
[2017-04-08 08:10] LABS: INR 5.4 (0.8-1.2)
[2017-04-08] MEDS: PANTOPRAZOLE SODIUM 40 MG/VIAL (PROTONIX) IVP SCH (09:32)
[2017-04-08] MEDS: CALCIUM CARBONATE/VITAMIN D3 1 TAB TABLET GT SCH ×2 (09:34→21:31)
[2017-04-08] MEDS: DOCUSATE SODIUM 100 MG/10 ML UDC GT SCH ×2 (09:34→21:30)
[2017-04-08] MEDS: VALPROIC ACID ORAL SYRUP 250 MG/5 ML UDC GT SCH ×2 (09:34→21:34)
[2017-04-08] MEDS: FERROUS SULFATE 300 MG/5 ML UDC GT SCH (09:34)
[2017-04-08] MEDS: ASCORBIC ACID 500 MG TABLET GT SCH ×2 (09:35→21:31)
[2017-04-08] MEDS: MUPIROCIN 2% TOPICAL OINTMENT 22 GM TP SCH ×2 (09:39→21:33)
[2017-04-08 12:00] LABS: T4 (THYROXINE) 6.9 ug/dL (4.5-12.0)
[2017-04-08] MEDS: 0.45% NACL 1,000 ML IV SCH (18:55)
[2017-04-09 00:10] VITALS: BP_SYST 139
[2017-04-09] MEDS: LEVALBUTEROL HCL 0.63 MG/3 ML VIAL.NEB INH SCH ×5 (00:39→16:24)
[2017-04-09 04:17] VITALS: BP_SYST 136
[2017-04-09] MEDS: DILTIAZEM HCL 30 MG TABLET GT SCH ×2 (05:51→13:17)
[2017-04-09 07:10] LABS: ANION GAP 5 (5-15); CALCIUM 9.3 mg/dL (8.4-11.0); CHLORIDE 101 mmol/L (98-107); CREATININE 0.61 mg/dL (0.55-1.30); GLUCOSE 117 mg/dL (70-99); SODIUM SERUM 137 mmol/L (136-145); UREA NITROGEN, BLOOD 14 mg/dL (8-21)
[2017-04-09] MEDS: BUDESONIDE 0.5 MG/2 ML AMPUL.NEB INH SCH (07:33)
[2017-04-09 07:41] LABS: BASOPHILS % (AUTO) 0.1 % (0.0-2.0); EOSINOPHILS % (AUTO) 0.1 % (0.0-4.0); HEMATOCRIT 28.5 % (36-48); HEMOGLOBIN 9.4 g/dL (12.0-16.0); LYMPHOCYTES # (AUTO) 0.7 K/uL (1.0-5.5); LYMPHOCYTES % (AUTO) 9.7 % (20.5-51.5); MEAN CORPUSCULAR HEMOGLOBIN 32 pg (27-31); MEAN CORPUSCULAR HGB CONC 33 % (32-36); MONOCYTES # (AUTO) 0.7 K/uL (0.0-1.0); MONOCYTES % (AUTO) 9.7 % (1.7-9.3); NEUTROPHILS # (AUTO) 5.8 K/uL (1.8-7.7); NEUTROPHILS % (AUTO) 80.4 % (40.0-70.0); RED BLOOD CELL COUNT(AUTO) 2.94 MIL/uL (4.2-6.2); RED CELL DISTRIBUTION WIDTH 13.4 % (9.0-15.0); WHITE BLOOD COUNT (AUTO) 7.3 K/uL (4.8-10.8)
[2017-04-09 07:42] LABS: INR 4.9 (0.8-1.2); PROTHROMBIN TIME 55.8 SECS (9.5-12.5)
[2017-04-09 07:45] VITALS: BP_SYST 134
[2017-04-09 07:58] LABS: MEAN CORPUSCULAR VOLUME 97 fL (79.0-98.0)
[2017-04-09 08:19] LABS: PLATELET COUNT (AUTO) 194 K/uL (130-430)
[2017-04-09] MEDS: FERROUS SULFATE 300 MG/5 ML UDC GT SCH (08:35)
[2017-04-09] MEDS: CALCIUM CARBONATE/VITAMIN D3 1 TAB TABLET GT SCH (08:35)
[2017-04-09] MEDS: VALPROIC ACID ORAL SYRUP 250 MG/5 ML UDC GT SCH (08:35)
[2017-04-09] MEDS: PANTOPRAZOLE SODIUM 40 MG/VIAL (PROTONIX) IVP SCH (08:35)
[2017-04-09] MEDS: DOCUSATE SODIUM 100 MG/10 ML UDC GT SCH (08:35)
[2017-04-09] MEDS: MUPIROCIN 2% TOPICAL OINTMENT 22 GM TP SCH (08:35)
[2017-04-09] MEDS: ASCORBIC ACID 500 MG TABLET GT SCH (08:35)
[2017-04-09] MEDS ORDERED: LEVO750T45 PO (11:29)
[2017-04-09] MEDS ORDERED: XOP.63 INH ×2 (11:29)
[2017-04-09] MEDS ORDERED: METOCLOPRAMIDE HCL 10 MG/10 ML UDC GT PRN (11:45)
[2017-04-09] MEDS ORDERED: FUROSEMIDE 40 MG/4 ML VIAL IVP ONE (11:45)
[2017-04-09] MEDS ORDERED: POTASSIUM CHLORIDE 20 MEQ TAB.PRT.SR GT ONE (12:00)
[2017-04-09] MEDS ORDERED: SCOPOLAMINE HYDROBROMIDE TD SCH (12:00)
[2017-04-09 12:26] VITALS: BP_SYST 116
[2017-04-09] MEDS ORDERED: POTASSIUM CHLORIDE 20 MEQ/PKT PACKET GT ONE (13:30)
[2017-04-09 16:14] VITALS: BP_SYST 130
[2017-04-09 16:36] VITALS: BP_SYST 130
== END 2017-04-09 18:50 | DRG 871 ==
LOC: SED 23:23 → STU 04-05 01:19
PROVIDERS: ADMIT Family Medicine; ATTEND Family Medicine
DX: A41.9 Sepsis, unspecified organism (principal); J69.0 Pneumonitis due to inhalation of food and vomit; J96.01 Acute respiratory failure with hypoxia; G93.41 Metabolic encephalopathy; I82.409 Acute embolism and thrombosis of unspecified deep veins of unspecified lower extremity; E87.0 Hyperosmolality and hypernatremia; R13.10 Dysphagia, unspecified; D68.9 Coagulation defect, unspecified; E86.0 Dehydration; I48.91 Unspecified atrial fibrillation; G30.9 Alzheimer's disease, unspecified; I10 Essential (primary) hypertension; F02.80 Dementia in other diseases classified elsewhere, unspecified severity, without behavioral disturbance, psychotic disturbance, mood disturbance, and anxiety; Z66 Do not resuscitate; R26.81 Unsteadiness on feet; J44.9 Chronic obstructive pulmonary disease, unspecified; G40.909 Epilepsy, unspecified, not intractable, without status epilepticus; I25.10 Atherosclerotic heart disease of native coronary artery without angina pectoris; K21.9 Gastro-esophageal reflux disease without esophagitis; D63.8 Anemia in other chronic diseases classified elsewhere; M62.81 Muscle weakness (generalized); T45.515A Adverse effect of anticoagulants, initial encounter; Y92.89 Other specified places as the place of occurrence of the external cause; Y93.89 Activity, other specified; Y99.8 Other external cause status; Z93.1 Gastrostomy status; Z86.73 Personal history of transient ischemic attack (TIA), and cerebral infarction without residual deficits; Z88.0 Allergy status to penicillin; Z87.01 Personal history of pneumonia (recurrent); Z79.899 Other long term (current) drug therapy; Z22.322 Carrier or suspected carrier of Methicillin resistant Staphylococcus aureus
CPT/HCPCS: 36415; 36600; 71010; 80048; 80053; 80061; 82150-TC; 82803-TC; 83036; 83605; 83690-TC; 83735-TC; 83880; 84100-TC; 84436; 84439; 84443-TC; 84479; 84484; 85025; 85610-TC; 85730-TC; 87040-TC; 87081; 93306; 94640; 94760; 96361; 96374; 99285; C9113; J1644; J1940; J1956; J2060; J2270; J3490; J7030